=== PATIENT | female | born 1950 | race Caucasian/White ===

== ENCOUNTER 2023-12-06 12:38 | Outpatient (AMB) | payer MEDICARE, SELFPAY ==
--- NOTE | 2023-12-06 12:41 | MHC.OFFVIS ---
Vital Signs 12/06/23 12:51 Height 5 ft 6 in Weight 200 lb BMI 32.3 Intake Visit Reasons: [employer]-Right knee pain Intake Note: Armando is a 73 year old female who presents as a new patient who is reestablishing care with Dr. Greco with Right knee pain swelling. Patient reports her pain has been going on for about 4 years. The patient states that she did have right knee arthroscopic surgery approximately 4 years ago. She got temporary relief from that surgery. She has had cortisone injections in the past which gave her minimal relief. She has had a series of viscosupplementation injections given into her left knee. She reports minimal discomfort in her left knee. She would like to hold off on further surgery for as long as possible. She has done physical therapy exercises which aggravated her pain. She has also tried Tylenol and anti-inflammatory medicines which gave her minimal relief. 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 Physical Exam Vital Signs: BMI result Body Mass Index 32.3 Const Other: Well-nourished well-developed very friendly female awake alert and oriented x3 in no acute distress Extrem Other: Bilateral lower extremity examination shows good capillary refill, no skin lesions noted, normal sensation light touch Right knee examination shows a minimal effusion, mild crepitus with range of motion, pain with range of motion, no instability Results Reviewed Results Reviewed: X-rays of the patient's right knee show moderate joint space narrowing most significant in the medial compartment, no acute bony abnormalities Assessment & Plan Assessment & Plan (1) Arthritis of right knee: Code(s): M17.11 - Unilateral primary osteoarthritis, right knee Category: Medical Plan Ms. Roman presents with right knee pain due to degenerative joint disease. I had a lengthy discussion with the patient regarding the treatment options. She wishes to hold off on right total knee replacement surgery for as long as possible. I agree with this plan. She has not gotten long-term relief from cortisone injections. Thus, I will see whether not her insurance company will cover a series of 3 viscosupplementation injections for her right knee. She has gotten good relief of such a series of injections given into her left knee. I will see her back once the injections are available. Feel free to call me at any time should questions regarding her orthopedic management arise. I spent 22 minutes in reviewing the patient's records and imaging studies, seeing the patient and documenting in the medical record. Orders: Orders XR knee RT 3V Today M25.561 - Pain in right knee Coding Level of Care Code Est Pt Level 3 (65181) Diagnoses Arthritis of right knee M17.11
[2023-12-06 12:51] VITALS: BMI 32.3
== END 2023-12-06 13:21 | disposition home or self-care (01) ==
PROVIDERS: PCP Physician Assistant; Visit Provider Orthopaedic Surgery
DX: M17.11 Unilateral primary osteoarthritis, right knee (principal)
CPT/HCPCS: 99213

== ENCOUNTER 2023-12-06 13:09 | Outpatient (REF) | payer MEDICARE, BC, SELFPAY ==
--- NOTE | ~2023-12-06 | XR_ITS ---
EXAMINATION: XR KNEE, RIGHT CLINICAL INFORMATION: Pain in right knee. COMPARISON: None available. TECHNIQUE: Three views of the right knee. FINDINGS: Small joint effusion. Bones are diffusely demineralized. Moderate narrowing of the medial compartment with medial marginal osteophytes. Small posterior patellar osteophytes. Asymmetric narrowing of the lateral aspect of the patellofemoral compartment. XR/XR knee RT 3V IMPRESSION: Moderate degenerative changes.
== END 2023-12-06 13:10 | disposition home or self-care (01) ==
LOC: HO.HOSX 13:09
PROVIDERS: Visit Provider Orthopaedic Surgery
DX: M17.11 Unilateral primary osteoarthritis, right knee (principal)
CPT/HCPCS: 73562; 99212

== ENCOUNTER 2024-01-03 13:23 | Outpatient (AMB) | payer MEDICARE, OTHER, SELFPAY ==
[2024-01-03 13:28] VITALS: BMI 32.3
--- NOTE | 2024-01-03 13:28 | A.OFFVIS_ITS ---
Vital Signs 01/03/24 13:28 Height 5 ft 6 in Weight 200 lb BMI 32.3 Intake Visit Reasons: INJ #1 Right knee euflexxa gel injection Intake Note: Armando is a 73 year old female who presents with complaints of progressively worsening right knee pain. She describes her pain as sharp in nature. Her pain has gotten worse over the last few years in spite of continued non operative treatments. She has done physical therapy exercises which aggravated her pain. She has also tried Tylenol and anti-inflammatory medicines which gave her minimal relief. She has had cortisone injections which gave her no relief. She wishes to hold off on surgery for as long as possible. Allergies Sulfa (Sulfonamide Antibiotics) Allergy (Mild, Verified 01/03/24 13:29) Itching Medication List - Last Reconciled 01/04/24 by Javier Greco MD acetaminophen (Tylenol) 325 mg PO QID PRN ibuprofen 200 mg PO Q6H PRN PFSH Surgical History (Updated 12/06/23 @ 12:57 by Karlee Kirkpatrick CMA) Hx of cataract surgery Hx of left knee surgery Hx of right knee surgery Social History (Updated 12/06/23 @ 12:58 by Karlee Kirkpatrick CMA) Patient Tobacco Use Status: Never used Tobacco Current occupational status: retired Current occupation: Right ar[employer] dominant Physical Exam Vital Signs: BMI result Body Mass Index 32.3 Const Other: Well-nourished well-developed very friendly female awake alert and oriented x3 in no acute distress Extrem Other: Bilateral lower extremity examination shows good capillary refill, no skin lesions noted, normal sensation light touch Right knee examination shows a minimal effusion, palpable crepitus with range of motion, pain with range of motion, no instability Office Procedures Joint Injection/Drain Joint Injection/Drain Primary Site: right knee Prep: site was prepped using aseptic technique Injected: 20 mg of (Euflexxa viscosupplementation) and 1% plain lidocaine Procedure: The patient tolerated the procedure well Coding 57284 - Large joint Procedure code (CPT) selection complete Results Reviewed Results Reviewed: X-rays of the patient's right knee show joint space narrowing, subchondral sclerosis, no acute bony abnormalities Assessment & Plan Assessment & Plan (1) Arthritis of right knee: Code(s): M17.11 - Unilateral primary osteoarthritis, right knee Category: Medical Plan Ms. Roman presents with right knee pain due to degenerative joint disease. I had a lengthy discussion patient regarding the treatment options. She wishes to hold off on surgery for as long as possible. I agree with this plan. The risks and benefits of a series of Euflexxa viscosupplementation injections were disc ussed at length with the patient. The patient wishes to proceed. She tolerated the 1st injection well. Prior to the injection 3 cc of clear fluid were aspirated from the patient's right knee. She will follow up next week as scheduled. Feel free to call me at any time should questions regarding her orthopedic management arise. I spent 20 minutes in reviewing the patient's records and imaging studies, seeing the patient and documenting in the medical record. Orders: Orders AMB Joint Injection/Aspiration 01/03/24 M17.11 - Unilateral primary osteoarthritis, right knee Coding Level of Care Code Est Pt Level 3 (39584) Diagnoses Arthritis of right knee M17.11 CPT Codes Coding - 79107 Large joint: 89836 - Large joint ([id number])
== END 2024-01-03 13:44 | disposition home or self-care (01) ==
PROVIDERS: PCP Physician Assistant; Visit Provider Orthopaedic Surgery
DX: M17.11 Unilateral primary osteoarthritis, right knee (principal)
CPT/HCPCS: 20610; 99213

== ENCOUNTER → 2024-01-03 13:23 | Outpatient (BNVA) | payer MEDICARE, BC, SELFPAY | PROVIDERS: PCP Physician Assistant; Visit Provider Orthopaedic Surgery | DX: M17.11 Unilateral primary osteoarthritis, right knee (principal) | CPT/HCPCS: 20610; 99212; J7323 ==

== ENCOUNTER 2024-01-10 13:24 | Outpatient (AMB) | payer MEDICARE, OTHER, SELFPAY ==
--- NOTE | 2024-01-10 13:26 | MHC.OFFVIS ---
Vital Signs 01/10/24 13:28 Height 5 ft 6 in Weight 200 lb BMI 32.3 Intake Visit Reasons: INJ #2 Right knee euflexxa gel injection, Left shoulder pain Intake Note: Armando is a 73 year old female who presents with complaints of intermittent left shoulder pain as well as right knee pain. The patient states that she got mild relief from the 1st Euflexxa injection that she was given into her right knee at her last visit. She denies any fevers or chills. The patient states that she has been riding her bike which aggravates her left shoulder pain. She denies any weakness in her left shoulder. She has had an MRI of her left shoulder in the past. She has taken Tylenol and ibuprofen which gave her mild relief. She wishes to hold off on surgery for her shoulder or knee for as long as possible. today for her second Right knee Euflexxa gel injection #2. Patient reports she is doing well after first injection. Allergies Sulfa (Sulfonamide Antibiotics) Allergy (Mild, Verified 01/10/24 13:27) Itching Medication List - Last Reconciled 01/10/24 by Javier Greco MD acetaminophen (Tylenol) 325 mg PO QID PRN ibuprofen 200 mg PO Q6H PRN PFSH Surgical History Hx of cataract surgery Hx of left knee surgery Hx of right knee surgery Social History Patient Tobacco Use Status: Never used Tobacco Current occupational status: retired Current occupation: Right hand dominant Physical Exam Vital Signs: BMI result Body Mass Index 32.3 Const Other: Well-nourished well-developed very friendly female awake alert and oriented x3 in no acute distress Extrem Other: Bilateral upper extremity examination shows good capillary refill, no skin lesions noted, normal sensation light touch Left shoulder examination shows slightly decreased range of motion when compared to her right shoulder, 5/5 strength with supraspinatus testing, positive impingement signs, tenderness over her acromioclavicular joint, no instability Right knee examination shows a minimal effusion, palpable crepitus with range of motion, pain with range of motion, no instability Results Reviewed Results Reviewed: X-rays of the patient's right knee show joint space narrowing, subchondral sclerosis, no acute bony abnormalities MRI of the patient's left shoulder shows mild to moderate glenohumeral joint degenerative changes, a type 2 acromion, severe acromioclavicular joint narrowing, no rotator cuff tearing noted Assessment & Plan Assessment & Plan (1) Left shoulder pain: Code(s): M25.512 - Pain in left shoulder (2) Arthritis of right knee: Code(s): M17.11 - Unilateral primary osteoarthritis, right knee Category: Medical Plan Ms. Roman presents with left shoulder pain due to impingement syndrome, acromioclavicular joint arthritis and glenohumeral joint arthritis. I had a lengthy discussion with the patient regarding the treatment options. She wishes to hold off on surgery for as long as possible. I agree with this plan. Activity modifications were discussed at length with the patient. The patient does have right knee pain due to degenerative joint disease. The risks and benefits of a 2nd Euflexxa viscosupplementation injection were discussed at length with the patient. The patient wished to proceed. She tolerated the injection well. She will follow up with me next week as scheduled. Feel free to call me at any time should questions regarding her orthopedic management arise. I spent 20 minutes in reviewing the patient's records and imaging studies, seeing the patient and documenting in the medical record. Orders: Orders AMB Joint Injection/Aspiration Today M17.11 - Unilateral primary osteoarthritis, right knee Coding Level of Care Code Est Pt Level 3 (56769) Diagnoses Left shoulder pain M25.512 Arthritis of right knee M17.11
[2024-01-10 13:28] VITALS: BMI 32.3
== END 2024-01-10 13:49 | disposition home or self-care (01) ==
PROVIDERS: PCP Physician Assistant; Visit Provider Orthopaedic Surgery
DX: M25.512 Pain in left shoulder (principal); M17.11 Unilateral primary osteoarthritis, right knee
CPT/HCPCS: 20610; 99213

== ENCOUNTER → 2024-01-10 13:24 | Outpatient (BNVA) | payer MEDICARE, BC, SELFPAY | PROVIDERS: PCP Physician Assistant; Visit Provider Orthopaedic Surgery | DX: M17.11 Unilateral primary osteoarthritis, right knee (principal); M25.512 Pain in left shoulder | CPT/HCPCS: 20610; 99212; J7323 ==

== ENCOUNTER 2024-01-17 13:22 | Outpatient (AMB) | payer MEDICARE, OTHER, SELFPAY ==
--- NOTE | 2024-01-17 13:24 | MHC.OFFVIS ---
Intake Visit Reasons: INJ #3 Right knee euflexxa gel injection Intake Note: Armando is a 73 year old female who presents to the office today for her #3 right knee Euflexxa gel injection. She states that she has gotten mild relief from the injections given to her at her last 2 visits. She denies any locking or giving way. Allergies Sulfa (Sulfonamide Antibiotics) Allergy (Mild, Verified 01/17/24 13:25) Itching Medication List - Last Reconciled 01/17/24 by Javier Greco MD acetaminophen (Tylenol) 325 mg PO QID PRN ibuprofen 200 mg PO Q6H PRN PFSH Surgical History Hx of cataract surgery Hx of left knee surgery Hx of right knee surgery Social History Patient Tobacco Use Status: Never used Tobacco Current occupational status: retired Current occupation: Right hand dominant Physical Exam Extrem Other: Right knee examination shows a minimal effusion, palpable crepitus with range of motion, pain with range of motion, no instability Office Procedures Joint Injection/Drain Joint Injection/Drain Primary Site: right knee Prep: site was prepped using aseptic technique Injected: 20 mg of (Euflexxa viscosupplementation) and 1% plain lidocaine Coding - Large joint Procedure code (CPT) selection complete Results Reviewed Results Reviewed: X-rays of the patient's right knee show joint space narrowing, subchondral sclerosis, no acute bony abnormalities Assessment & Plan Assessment & Plan (1) Arthritis of right knee: Code(s): M17.11 - Unilateral primary osteoarthritis, right knee Category: Medical Plan Ms. Roman presents with right knee pain due to degenerative joint disease. The risks and benefits of a 3rd Euflexxa injection were discussed at length with the patient. The patient wished to proceed. She tolerated the injection well. She will continue with her home exercise program. She will contact me prior to her follow-up appointment in 3 months should any questions or concerns arise. Feel free to call me at any time should questions regarding her orthopedic management arise. Orders: Orders AMB Joint Injection/Aspiration Today M17.11 - Unilateral primary osteoarthritis, right knee Coding Level of Care Code Procedure Only Diagnoses Arthritis of right knee M17.11 CPT Codes Coding - Large joint: 58859 - Large joint ([id number])
== END 2024-01-17 13:39 | disposition home or self-care (01) ==
PROVIDERS: PCP Physician Assistant; Visit Provider Orthopaedic Surgery
DX: M17.11 Unilateral primary osteoarthritis, right knee (principal)
CPT/HCPCS: 20610

== ENCOUNTER → 2024-01-17 13:22 | Outpatient (BNVA) | payer MEDICARE, BC, SELFPAY | PROVIDERS: PCP Physician Assistant; Visit Provider Orthopaedic Surgery | DX: M17.11 Unilateral primary osteoarthritis, right knee (principal) | CPT/HCPCS: 20610; J7323 ==

== ENCOUNTER 2024-04-24 13:02 | Outpatient (AMB) | payer MEDICARE, OTHER, SELFPAY ==
[2024-04-24 13:04] VITALS: BMI 32.3
--- NOTE | 2024-04-24 13:04 | MHC.OFFVIS ---
Vital Signs 04/24/24 13:04 Height 5 ft 6 in Weight 200 lb BMI 32.3 Intake Visit Reasons: Left shoulder pain Intake Note: Armando is a 74 year old female who presents with complaints of intermittent pain in her left shoulder. She describes her pain as achy in nature. She denies any weakness. She continues with her home stretching program. Allergies Sulfa (Sulfonamide Antibiotics) Allergy (Mild, Verified 04/24/24 13:08) Itching Medication List - Last Reconciled 04/24/24 by Javier Greco MD acetaminophen (Tylenol) 325 mg PO QID PRN ibuprofen 200 mg PO Q6H PRN PFSH Surgical History Hx of cataract surgery Hx of left knee surgery Hx of right knee surgery Social History Patient Tobacco Use Status: Never used Tobacco Current occupational status: retired Current occupation: Right hand dominant Physical Exam Vital Signs: BMI result Body Mass Index 32.3 Const Other: Well-nourished well-developed very friendly female awake alert and oriented x3 in no acute distress Extrem Other: Bilateral upper extremity examination shows good capillary refill, no skin lesions noted, normal sensation light touch Left shoulder examination shows decreased range of motion when compared to her right shoulder, 4+ out of 5 strength with supraspinatus testing, positive impingement signs, mild crepitus with range of motion, no instability Assessment & Plan Assessment & Plan (1) Left shoulder pain: Code(s): M25.512 - Pain in left shoulder Plan Ms. Roman presents with intermittent left shoulder pain due to impingement syndrome and glenohumeral joint arthritis as well as adhesive capsulitis. I had a lengthy discussion with the patient regarding the treatment options. At this point the patient's symptoms are tolerable to her. She will continue with her home stretching program to prevent stiffness. She will follow up with me on an as-needed basis should her symptoms worsen in any way. Feel free to call me at any time should questions regarding her orthopedic management arise. I spent 21 minutes in reviewing the patient's records and imaging studies, seeing the patient and documenting in the medical record. Coding Level of Care Code Est Pt Level 3 (79750) Complex EM visit Add On G2211 Diagnoses Left shoulder pain M25.512
== END 2024-04-24 13:38 | disposition home or self-care (01) ==
PROVIDERS: PCP Physician Assistant; Visit Provider Orthopaedic Surgery
DX: M75.42 Impingement syndrome of left shoulder (principal); M75.02 Adhesive capsulitis of left shoulder; M19.012 Primary osteoarthritis, left shoulder
CPT/HCPCS: 99213

== ENCOUNTER → 2024-04-24 13:02 | Outpatient (BNVA) | payer MEDICARE, BC, OTHER, SELFPAY | PROVIDERS: PCP Physician Assistant; Visit Provider Orthopaedic Surgery | DX: M25.512 Pain in left shoulder (principal) | CPT/HCPCS: 99212 ==

== ENCOUNTER 2025-07-16 08:30 | Outpatient (AMB) | payer MEDICARE, OTHER, BC, SELFPAY ==
--- OUTSIDE RECORDS SUMMARY | 2024-10-12 07:30 | XMS_ITS ---
Author Organization [facility] Address [address] [place] [address] Care Team Providers Care Preparole Counseling Aide Name Role Phone PCP, Not Found in eCW Primary Care Provider Sherrill Ceron Unavailable [phone] ALLERGIES Allergen (clinical drug ingredient) Drug/Non Drug Allergy documented on EMR Reaction Allergy Type Onset Date Status Substance with sulfonamide structure and antibacterial mechanism of action (substance) Sulfa Antibiotics Unknown Drug Allergy Active RESULTS Component Value Reference Range Notes COVID-19 Rapid Antigen Reviewed date:10/12/2024 06:38:41 PM Interpretation:negative Performing Lab: Notes/Report: negative COVID19 negative Throat Culture - [facility] Reviewed date:10/14/2024 10:37:36 AM Interpretation:Negative Performing Lab:[facility], [address] [place] [address], Director - [facility] Caser: Saeed Kim MD Notes/Report: Throat Strep A SEE NOTE: : 1950 SEX: Female Microbiology Test Name: Throat Culture [P1] Source: Throat Body Site: Collected Date/Time: 10/12/2024 13:44 EDT Received Date/Time: 10/13/2024 03:33 EDT Start Date/Time: 10/13/2024 03:34 EDT Free Text Source: FINAL REPORT Final Report [] Reported Date/Time: 10/14/2024 08:35 EDT No Streptococcus pyogenes (Group A) isolated Performing Locations P1: This test was performed at: [facility], [address] [place], [address], [facility] A = Abnormal, H = High, HH = Critical High, L = Low, LL = Critical Low Rapid Strep Reviewed date:10/12/2024 07:04:50 PM Interpretation:Negative Performing Lab: Notes/Report: Negative STREP negative NEG - POS Covid-19 PCR - [facility] (Not ye t reviewed by provider) Interpretation: Performing Lab:[facility], [address] [place] [address], Director - [facility] Caser: Saeed Kim MD Notes/Report: Test not performed COVID-19 RT-PCR CANCEL Cancellation Reason: Lab Operations Cancel A = Abnormal, H = High, HH = Critical High, L = Low, LL = Critical Low REASON FOR VISIT ILLNESS MEDICATIONS Medication SIG (Take, Route, Frequency, Duration) Notes Start Date End Date Status Penicillin V Potassium 500 MG 1 tablet Orally Twice a day for 10 days 10/12/2024 10/22/2024 Active SOCIAL HISTORY Tobacco Use: Social History Observation Description Date Details (start date - stop date) Former Smoker NA - NA Sex Assigned At : Social History Observation Description Sex Assigned At Unknown Tobacco Use/Smoking Question Answer Notes You are a former smoker VITAL SIGNS Temperature 98.1 degrees Fahrenheit 10/13/19 25 Heart Rate 87 /min 10/12/2024 Blood pressure systolic 134 mm Hg 10/13/19 25 Blood pressure diastolic 84 mm Hg 025 Respiratory Rate 17 /min 10/12/2024 Oximetry 96 % 10/12/2024 Height 5'6 in 10/12/2024 Weight 190 lbs 10/12/2024 BMI 30.66 kg/m2 10/12/2024 Encounters Encounter Location Date Provider Diagnosis [facility] [address] [place] [address] 10/12/2024 Sherrill Machado Encounter for laboratory testing for COVID-19 virus Z20.822 ; Strep pharyngitis J02.0 and Sore throat J02.9 ASSESSMENTS Encounter Date Diagnosis Assessment Notes Treatment Notes Treatment Clinical Notes Section Notes 10/12/2024 Encounter for laboratory testing for COVID-19 virus (ICD-10 - Z20.822) Isolation starts on the first day of symptom onset or on date of positive test if you are asymptomatic. Isolation only ends if symptoms are improved, and you have had NO fever. A known COVID exposure is being within 6 feet of someone known to have COVID for at least 15 minutes. People with COVID may be contagious 48 hours before they get sick. Positive Results: The virus was found in the nasal passage, and you are infected with COVID. You should: 1. Stay home except to get medical care. 2. Isolate yourself from other people until your symptoms improve and you are fever free for 24 hours without the need for fever reducing medications. Children under 2 years old may need to be isolated longer, so please discuss this with your provider. 3. When resuming normal activities, you should take precautions such as mask wearing and social distancing as you may still be able to spread the virus. If you develop a fever or start to feel worse, you should stay home and away from others again. 4. Monitor your symptoms and if you have any of these emergency warning signs for COVID get medical attention immediately: Trouble breathing Persistent pain or pressure in the chest New confusion or inability to arouse Bluish lips or face 5. The most effective treatment for COVID is still an Oral AntiViral (OAV) medication called Paxlovid. Anyone over the age of 12 with any of these common risk factors (heart disease, lung disease, chronic kidney disease, obesity, diabetes, immunocompromis ed, cancer, , age > 50) is eligible for treatment within the first 5 days of illness. If you have any questions or would like to see if you qualify for treatment, you can discuss this with us today or your PCP. Negative Results: The virus was not found in your nose. A negative result means you probably were not infected at the time your sample was collected. However, that does not mean you will not get sick. It is possible that you were very early in your infection when your sample was collected and that you could test positive later. If a COVID PCR test was performed, you will be contacted within 24-48h if your test is positive. If negative, you will receive an email to access your results on the patient portal. To access your patient portal, you may visit [email or web address]. If a COVID PCR test was not performed, it is recommended for you to perform a home test in 48 hours. Please continue to wear a mask, hand wash, and continue social distancing. Please contact your provider if you have new or worsening symptoms. Even with a NEGATIVE COVID test, if you were exposed it is recommended to mask for 10 days around others and get tested if symptoms develop. Add U07.1 and remove Z20.822 if Covid Positive 10/12/2024 Strep pharyngitis (ICD-10 - J02.0) Add U07.1 and remove Z20.822 if Covid Positive 10/12/2024 Sore throat (ICD-10 - J02.9) Add U07.1 and remove Z20.822 if Covid Positive 10/12/2024 Other You may take an lorr-hvq-eplxcz r pain reliever/fever event promotions coordinator for any fever/pain. You can also take an mmpv-bbg-nemlne r cough suppressant as needed for cough if one has not been prescribed. Your provider can recommend specific medications based on your medical history if needed. Return to the clinic or schedule a virtual visit if you require additional medical attention. Add U07.1 and remove Z20.822 if Covid Positive PLAN OF TREATMENT Medication Medication Name Sig Start Date Stop Date Notes Penicillin V Potassium 500 MG 1 tablet O rally Twice a day for 10 days 10/12/2024 10/22/2024 Treatment Notes Assessment Notes Encounter for laboratory sylvester ting for COVID-19 virus Isolation starts on the first day of symptom onset or on date of positive test if you are asymptomatic. Isolation only ends if symptoms are improved, and you have had NO fever. A known COVID exposure is being within 6 feet of someone known to have COVID for at least 15 minutes. People with COVID may be contagious 48 hours before they get sick. Positive Results: The virus was found in the nasal passage, and you are infected with COVID. You should: 1. Stay home except to get medical care. 2. Isolate yourself from other people until your symptoms improve and you are fever free for 24 hours without the need for fever reducing medications. Children under 2 years old may need to be isolated longer, so please discuss this with your provider. 3. When resuming normal activities, you should take precautions such as mask wearing and social distancing as you may still be able to spread the virus. If you develop a fever or start to feel worse, you should stay home and away from others again. 4. Monitor your symptoms and if you have any of these emergency warning signs for COVID get medical attention immediately: Trouble breathing Persistent pain or pressure in the chest New confusion or inability to arouse Bluish lips or face 5. The most effective treatment for COVID is still an Oral AntiViral (OAV) medication called Paxlovid. Anyone over the age of 12 with any of these common risk factors (heart disease, lung disease, chronic kidney disease, obesity, diabetes, immunocompromised, cancer, , age > 50) is eligible for treatment within the first 5 days of illness. If you have any questions or would like to see if you qualify for treatment, you can discuss this with us today or your PCP. Negative Results: The virus was not found in your nose. A negative result means you probably were not infected at the time your sample was collected. However, that does not mean you will not get sick. It is possible that you were very early in your infection when your sample was collected and that you could test positive later. If a COVID PCR test was performed, you will be contacted within 24-48h if your test is positive. If negative, you will receive an email to access your results on the patient portal. To access your patient portal, you may visit [email or web address]. If a COVID PCR test was not performed, it is recommended for you to perform a home test in 48 hours. Please continue to wear a mask, hand wash, and continue social distancing. Please contact your provider if you have new or worsening symptoms. Even with a NEGATIVE COVID test, if you were exposed it is recommended to mask for 10 days around others and get tested if symptoms develop. Other You may take an over -the-counter pain reliever/fever event promotions coordinator for any fever/pain. You can also take an aldg-qnx-nrebmyh cough suppressant as needed for cough if one has not been prescribed. Your provider can recommend specific medications based on your medical history if needed. Return to the clinic or schedule a virtual visit if you require additional medical attention. Procedure Notes * Category Sub-Category Detail Notes GH - COVID POSITIVE Treatment Options Answer questions for ALL patients being tested for COVID. Has Patient tested POSITIVE for COVID at this time?: N/A (Patient was NOT tested or did NOT test positive at time of visit/does not meet treatment guidelines) Progress Notes * Examination Category Sub-Category Detail Notes Category Not es General PE GENERAL: no acute distres s, well nourished, well developed HEAD: normocephalic, atrau matic EYES: no conjunctival inje ction MOUTH/THROAT , moderate pharyngea l erythema, b/l tonsillar swelling with exudates, no kissing tonsills, uvula midline, no drooling, no COUNTY ENGINEER, moist mucous membranes HEART: regular rate and rhy thm LUNGS: , Normal: clear to a uscultation, No respiratory distress, no accessory muscle use, No rales, No rhonchi, No wheezing PSYCHIATRIC: affect full , Intera ctive, conversant, A&O x3 SKIN warm, dry, no rash o n exposed skin EARS/NOSE: tympanic membranes c lear bilaterally, No redness, normal landmarks and light reflexes, canal clear without cerumen impaction LYMPHATIC no cervical lymphade nopathy History and Physical Notes * HPI (History of Present Illness) Category Sub-Category Detail Notes Category Not es URI nasal congestion admits cough admits fever none vomiting none diarrhea none ear pain none sore throat mild Duration 4 days myalgias denies chills denies Modifying Factors patient has tried OT C medications with mild relief Independent historian used No Coronavirus Screening Exposure Screening Known positive CO VID Exposure: Did you have a positive home COVID test? : No Have you been vaccinated against COVID-1 9?: Do you have any high-risk medical condit ions?:
--- OUTSIDE RECORDS SUMMARY | 2024-10-14 05:36 | XMS_ITS ---
Author Organization [facility] Address [address] [place] [address] Care Team Providers Care Broadcast Systems Engineer Name Role Phone PCP, Not Found in eCW Primary Care Provider Unav ailable Pepe Gilman Unavailable [phone] REASON FOR VISIT CC/RESULTS(Rep) Encounters Encounter Location Date Provider Diagnosis [facility] [address] [place] [address] 10/14/2024 Pepe Gilman PLAN OF TREATMENT No Information
--- OUTSIDE RECORDS SUMMARY | 2024-10-15 05:00 | XMS_ITS ---
Author Organization [facility] Address [address] [place] [address] Care Team Providers Care Paint Supervisor Name Role Phone PCP, Not Found in eCW Primary Care Provider Unav James Deng Unavailable [phone] ALLERGIES Allergen (clinical drug ingredient) Drug/Non Drug Allergy documented on EMR Reaction Allergy Type Onset Date Status Substance with sulfonamide structure and antibacterial mechanism of action (substance) Sulfa Antibiotics Unknown Drug Allergy Active REASON FOR VISIT cough MEDICATIONS Medication SIG (Take, Route, Fr equency, Duration) Notes Start Date End Date Status Vigamox 0.5 % 1 drop into affected eye Ophthalmic Three times a day for 5 days 10/15/2024 10/20/2024 Active Benzonatate 200 MG 1 capsule as needed Orally bid for 7 days 10/15/2024 10/22/2024 Active PROBLEMS Problem Type ICD Code Onset Dates Problem Status W/U Status Risk SNOMED Code Notes Problem Upper respiratory tract infection, unspecified type (J06.9) Active confirmed 31589613 VITAL SIGNS Temperature 98.4 degrees Fahrenheit 10/16/19 25 Heart Rate 89 /min 10/15/2024 Blood pressure systolic 132 mm Hg 10/16/19 25 Blood pressure diastolic 84 mm Hg 025 Respiratory Rate 16 /min 10/15/2024 Oximetry 96 % 10/15/2024 Height 5ft 6in in 10/15/2024 Weight 190 lbs 10/15/2024 BMI 30.66 kg/m2 10/15/2024 Encounters Encounter Location Date Provider Diagnosis [facility] [address] [place] [address] 10/15/2024 James Avila Acute bacterial conjunctivitis of both eyes H10.33 and Upper respiratory tract infection, unspecified type J06.9 ASSESSMENTS Encounter Date Diagnosis Assessment Notes Treatment Notes Treatment Clinical Notes Section Notes 10/15/2024 Acute bacterial conjunctivitis of both eyes (ICD-10 - H10.33) 10/15/2024 Upper respiratory tract infection, unspecified type (ICD-10 - J06.9) PLAN OF TREATMENT Medication Medication Name Sig Start Date Stop Date Notes Vigamox 0.5 % 1 drop into affected eye Ophthalmic Three times a day for 5 days 10/15/2024 10/20/2024 Benzonatate 200 MG 1 capsule as needed Orally bid for 7 days 10/15/2024 10/22/2024 Progress Notes * Examination Category Sub-Category Detail Notes Category Not es General Examination GENERAL APPEARANCE: alert, w ell hydrated, in no distress, not sob, occ. 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 she denies sob or cp.
--- NOTE | 2025-07-16 08:31 | A.OFFVIS_ITS ---
Intake Visit Reasons: Inj-right knee Durolane injection Intake Note: Armando is a 75 year old female who presents with complaints of right knee pain. She describes her pain as sharp in nature. She has failed the last 3 months of conservative treatment. She wishes to hold off on surgery for as long as possible. Allergies Sulfa (Sulfonamide Antibiotics) Allergy (Mild, Verified 04/24/24 13:08) Itching Medication List - Last Reconciled 07/16/25 by Javier Greco MD acetaminophen (Tylenol) 325 mg PO QID PRN ibuprofen 200 mg PO Q6H PRN HPI HPI Inj-right knee Durolane injection: Details: Armando is a 75 year old female who presents today for a Right Knee Durolane Injection. [facility] Surgical History Hx of cataract surgery Hx of left knee surgery Hx of right knee surgery Social History (Reviewed 01/10/24 @ 13:28 by Angela Sharp [facility] Patient Tobacco Use Status: Never used Tobacco Current occupational status: retired Current occupation: Right hand dominant Physical Exam Extrem Other: Right knee examination shows a minimal effusion, palpable crepitus with range of motion, pain with range of motion, no instability Office Procedures AMB Joint Injection/Aspiration Joint Injection/Aspiration Primary Site: Right Knee Prep: site was prepped using aseptic technique Injected: 60 mg of, Durolane, with 3 mL of and 1% plain Lidocaine Procedure: The patient tolerated the procedure well Coding 79836 - Large joint Procedure code (CPT) selection complete Results Reviewed Results Reviewed: X-rays of the patient's right knee taken previously show joint space narrowing, subchondral sclerosis, no acute bony abnormalities Assessment & Plan Assessment & Plan (1) Arthritis of right knee: Code(s): M17.11 - Unilateral primary osteoarthritis, right knee Category: Medical Plan Ms. Roman presents with right knee pain due to osteoarthritis. The risks and benefits of a right knee Durolane viscosupplementation injection were discussed at length with the patient. The patient wished to proceed. She tolerated the injection well. She will continue with her home exercise program. She will contact me prior to her follow-up appointment in 3 months should any questions or concerns arise. Feel free to call me at any time should questions regarding her orthopedic management arise. I spent 22 minutes in reviewing the patient's records and imaging studies, seeing the patient and documenting in the medical record. Orders: Orders AMB Joint Injection/Aspiration Today M17.11 - Unilateral primary osteoarthritis, right knee Coding Level of Care Code Est Pt Level 3 (49014) Add On Problem Visit Only Diagnoses Arthritis of right knee M17.11 CPT Codes Coding - 33292 Large joint: 29128 - Large joint ([id number])
--- OUTSIDE RECORDS SUMMARY | 2025-07-16 08:43 | XMS_ITS | Patient Health Record ---
Author Organization [facility] Address [address] [place] [address] Support Name Relationship Address Phone Armando Roman Guarantor Unknown [phone] Reason For Referral No Information Problems Problem Type SNOMED Code ICD Code Onset Dates Problem Status W/U Status Risk Notes Problem Hyperlipidemia (57633299) Other and unspecified hyperlipidemia (272.4) 08/22/19 17 0 confirmed 471178_ Migrate d Problem Overweight (472838291) Overweight (278.02) 08/03/19 17 0 confirmed 471178_ Migrate d Plan Of Treatment No Information
--- OUTSIDE RECORDS SUMMARY | 2025-07-16 08:43 | XMS_ITS | Clinical Summary ---
Author Organization [facility] Prior to 12/28/[address] [place] [address] Care Team Providers Care Qa Tech Name Role Phone Unavailable Primary Care Provider Unavailabl e Allergies Active Allergy Reactions Criticality Noted Date Comments Sulfa Antibiotics 03/20/2020 Medications Medication Sig Dispensed Refills Start Date End Date Status ibuprofen (ADVIL,MOTRIN) 200 MG tablet Take 200 mg by mouth every 6 (six) hours as needed for pain. 0 Active predniSONE (DELTASONE) tablet 20 mg Take 3 tabs for 3 days then take 2 tabs for 3 days then take 1 tab for 3 days 18 tablet 0 08/31/2021 Active Active Problems Problem Noted Date Diagnosed Date Follow-up exam after treatment 04/19/2022 Traumatic tear of medial men iscus of knee, right, initial encounter 03/20/2020 Injury of right knee 03/20/2020 Family History Medical History Relation Name Comments Cancer Mother Diabetes Mother Relation Name Status Comments Mother Social History Tobacco Use Types Packs/Day Years Used Date Smoking Tobacco: Never Assessed Sex and Gender Information Value Date Recorded Sex Assigned at Not on file Gender Identity Not on file Sexual Orientation Not on file Job Start Date Occupation Industry Not on file Not on file Not on file Last Filed Vital Signs Vital Sign Reading Time Taken Comments Blood Pressure - - Pulse - - Temperature - - Respiratory Rate - - Oxygen Saturation - - Inhaled Oxygen Concentration - - Weight 88.5 kg (195 lb) 04/01/2022 9:14 AM EDT Height 167.6 cm (5' 6 ) 04/01/2022 9:14 AM EDT Body Mass Index 31.47 04/01/2022 9:14 AM EDT Plan of Treatment Health Maintenance Due Date Last Done Comments Hepatitis C Screening 1950 COVID-19 Vaccine (#1) 1950 Depression Screening 1961 BMI Counseling 1967 Preventative Health Evaluation 1967 DTap / Tdap / Td (1 - Tdap) 1968 Shingrix-Zoster Vaccine (1 of 2) 1999 Fall Risk Assessment 2014 Osteoporosis Screening (DEXA Scan) 2014 Pneumococcal Vaccine (1 of 1 - PCV) 2014 RSV Adult > 60+ Yrs or Pregn ant (1 - 1-dose 75+ series) 2024 Influenza Vaccine (#1) 2025 Hepatitis B Vaccines Aged Out No long er eligible based on patient's age to complete this topic RSV Ped < 20 months Aged Out No longe r eligible based on patient's age to complete this topic
--- OUTSIDE RECORDS SUMMARY | 2025-07-16 08:43 | XMS_ITS | Data Portability ---
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 She opted for cortisone injection. This was carried out. She tolerated this well aftercare instructions were discussed in detail. I will see her back in approximately 8 weeks for repeat clinical exam should her symptoms not improve or worsen she should contact my office. She agrees with above-noted plan. Indirect care and treatment in conjunction with Dr. Rosenthal Additional treatment plan discussed with the patient in detail included the following; - Provider focused nonsteroidal anti-inflammatory regimen (discussed were the pros, cons, benefits and risks as well as any black box warnings) in patients over 60 years old they should be very cautious in taking these medications due to potential decreased kidney function and or elevated blood pressure. - Analgesic pain medication for pain suppression (discussed were the pros, cons, benefits and risks as well as any black box warnings) - The use of topical pain relieving medication were discussed - The use of ice to decrease inflammation and pain - The use of assistive ambulatory devices for ambulation and fall prevention - Formal specific guided physical therapy program I reviewed my findings at length with the patient today. We discussed the nature and etiology of this problem along with current treatment options. We discussed the expected course and outcomes and what to expect. We also discussed risks and benefits. All of their questions were answered today, and there was exhibited understanding and comprehension of all that was discussed. Time Spent: 10 minutes were spent reviewing previous imaging and charting. 10 minutes were spent obtaining patient history. 5 minutes were spent on physical exam. 5minutes were spent explaining diagnosis and assessment. Today's documentation was made using voice recognition software. This note may contain grammatical errors secondary to the software. Not available 03/14/2023 13:02:01 06/01/2023 06/01/2023 Very pleasant 73-year-old female with mild to moderate osteoarthritis of the right knee with joint effusion. She opted for an aspiration at today's visit followed by cortisone injection. She granted verbal consent. The procedures were then carried out for which she tolerated well. Aftercare instructions were discussed in detail. I would like to see her back in 3 months time for repeat clinical exam. Should her symptoms not improve or worsen she should contact my office immediately. She agrees with this plan Patient was seen and evaluated by Edwardo العلي PA-C in indirect conjuction with Documenting Provider: Abdiel Rosenthal MD . He/She agrees with history, physical examination, tests/diagnostic imaging, and treatment plan. Additional treatment plan discussed with the patient (only initiated if in boldface font) otherwise not applicable. Treatment may include the following; - Provider focused nonsteroidal anti-inflammatory regimen (discussed were the pros, cons, benefits and risks as well as any black box warnings) in patients over 60 years old they should be very cautious in taking these medications due to potential decreased kidney function and or elevated blood pressure. - Analgesic pain medication for pain suppression (discussed were the pros, cons, benefits and risks as well as any black box warnings) - The use of topical pain relieving medication were discussed - The use of ice to decrease inflammation and pain - The use of assistive ambulatory devices for ambulation and fall prevention - Formal specific guided physical therapy program I reviewed my findings at length with the patient today. We discussed the nature and etiology of this problem along with current treatment options. We discussed the expected course and outcomes and what to expect. We also discussed risks and benefits. All of their questions were answered today, and there was exhibited understanding and comprehension of all that was discussed. Time Spent: 10 minutes were spent reviewing previous imaging and charting. 10 minutes were spent obtaining patient history. 5 minutes were spent on physical exam. 5minutes were spent explaining diagnosis and assessment. Today's documentation was made using voice recognition software. This note may contain grammatical errors secondary to the software. Not available 06/02/2023 08:08:57 06/20/2023 06/20/2023 73-year-old female with left shoulder impingement syndrome despite conservative management has failed. I will send her for an MRI for further work-up depending upon the findings I may refer her to a shoulder surgeon if indicated. In the meantime she can continue with her current stretching regimen. She agrees with this plan. Patient was seen and evaluated by Edwardo العلي PA-C in indirect conjuction with Documenting Provider: Jose Montaño MD . He/She agrees with history, physical examination, tests/diagnostic imaging, and treatment plan. Additional treatment plan discussed with the patient (only initiated if in boldface font) otherwise not applicable. Treatment may include the following; - Provider focused nonsteroidal anti-inflammatory regimen (discussed were the pros, cons, benefits and risks as well as any black box warnings) in patients over 60 years old they should be very cautious in taking these medications due to potential decreased kidney function and or elevated blood pressure. - Analgesic pain medication for pain suppression (discussed were the pros, cons, benefits and risks as well as any black box warnings) - The use of topical pain relieving medication were discussed - The use of ice to decrease inflammation and pain - The use of assistive ambulatory devices for ambulation and fall prevention - Formal specific guided physical therapy program I reviewed my findings at length with the patient today. We discussed the nature and etiology of this problem along with current treatment options. We discussed the expected course and outcomes and what to expect. We also discussed risks and benefits. All of their questions were answered today, and there was exhibited understanding and comprehension of all that was discussed. Time Spent: 10 minutes were spent reviewing previous imaging and charting. 10 minutes were spent obtaining patient history. 5 minutes were spent on physical exam. 5minutes were spent explaining diagnosis and assessment. Today's documentation was made using voice recognition software. This note may contain grammatical errors secondary to the software. Not available 06/20/2023 12:59:23 07/11/2023 07/11/2023 Pleasant 73-year-old female with chronic left shoulder pain with partial rotator cuff tear of the supraspinatus tendon with glenohumeral arthritis, AC joint arthritis and impingement syndrome. Patient is taking care of her who recently had surgery. She states she is not interested in surgery at this point. She has gone through formal physical therapy and had cortisone injection in the past which did give her good relief. She is amenable to a cortisone injection at today's visit. We did discuss going up on the dose to 60 mg pros cons risk benefits discussed with patient for which she was amenable to. After verbal consent was obtained. The procedure was carried on the left shoulder. She tolerated the procedure well. Aftercare instructions were discussed in detail. Follow-up visit 3 months time for repeat clinical exam. Should her symptoms not improve or worsen she should contact my office immediately. Should she reconsider having surgery I will set her up to see Dr. Montaño in our [place] office. She agrees with this plan. She should continue with her home exercise program and rotator cuff protective measures. Patient was seen and evaluated by Edwardo العلي PA-C in indirect conjuction with Documenting Provider: Jose Montaño MD . He/She agrees with history, physical examination, tests/diagnostic imaging, and treatment plan. Additional treatment plan discussed with the patient (only initiated if in boldface font) otherwise not applicable. Treatment may include the following; - Provider focused nonsteroidal anti-inflammatory regimen (discussed were the pros, cons, benefits and risks as well as any black box warnings) in patients over 60 years old they should be very cautious in taking these medications due to potential decreased kidney function and or elevated blood pressure. - Analgesic pain medication for pain suppression (discussed were the pros, cons, benefits and risks as well as any black box warnings) - The use of topical pain relieving medication were discussed - The use of ice to decrease inflammation and pain - The use of assistive ambulatory devices for ambulation and fall prevention - Formal specific guided physical therapy program I reviewed my findings at length with the patient today. We discussed the nature and etiology of this problem along with current treatment options. We discussed the expected course and outcomes and what to expect. We also discussed risks and benefits. All of their questions were answered today, and there was exhibited understanding and comprehension of all that was discussed. Time Spent: 10 minutes were spent reviewing previous imaging and charting. 10 minutes were spent obtaining patient history. 5 minutes were spent on physical exam. 5minutes were spent explaining diagnosis and assessment. Today's documentation was made using voice recognition software. This note may contain grammatical errors secondary to the software. Not available 07/11/2023 14:10:39 10/11/2023 10/11/2023 Pleasant 73-year-old female with chronic left shoulder pain with partial rotator cuff tear of the supraspinatus tendon with glenohumeral arthritis, AC joint arthritis and impingement syndrome. She is amenable to a cortisone injection at today's visit. We did discuss going up on the dose to 60 mg pros cons risk benefits discussed with patient for which she was amenable to. After verbal consent was obtained. The procedure was carried on the left shoulder. She tolerated the procedure well. Aftercare instructions were discussed in detail. Follow-up visit will be with Dr. Montaño or his PA Should she reconsider having surgery I will set her up to see Dr. Montaño in our [place] office. She agrees with this plan. She should continue with her home exercise program and rotator cuff protective measures. Patient was seen and evaluated by Edwardo العلي PA-C in indirect conjuction with Documenting Provider: Jose Montaño MD . He/She agrees with history, physical examination, tests/diagnostic imaging, and treatment plan. Additional treatment plan discussed with the patient (only initiated if in boldface font) otherwise not applicable. Treatment may include the following; - Provider focused nonsteroidal anti-inflammatory regimen (discussed were the pros, cons, benefits and risks as well as any black box warnings) in patients over 60 years old they should be very cautious in taking these medications due to potential decreased kidney function and or elevated blood pressure. - Analgesic pain medication for pain suppression (discussed were the pros, cons, benefits and risks as well as any black box warnings) - The use of topical pain relieving medication were discussed - The use of ice to decrease inflammation and pain - The use of assistive ambulatory devices for ambulation and fall prevention - Formal specific guided physical therapy program I reviewed my findings at length with the patient today. We discussed the nature and etiology of this problem along with current treatment options. We discussed the expected course and outcomes and what to expect. We also discussed risks and benefits. All of their questions were answered today, and there was exhibited understanding and comprehension of all that was discussed. Time Spent: 10 minutes were spent reviewing previous imaging and charting. 10 minutes were spent obtaining patient history. 5 minutes were spent on physical exam. 5minutes were spent explaining diagnosis and assessment. Today's documentation was made using voice recognition software. This note may contain grammatical errors secondary to the software. Not available 10/11/2023 09:52:03 Plan of Treatment Reminders Order Date Submit Date Provider Last Modified By Organization Details Last Modified Time Details Appointments None recorded. Lab None recorded. Referral physical therapist referral - Left Adhesive capsulitis, impingement with GH arthritis. Eduardo. Inj 03/14/23 Eval and treat 2022 023 [email or web address] 2 Not available 3 08:58:07 Procedures None recorded. Surgeries None recorded. Imaging MRI, shoulder, w/o contrast - Chronic Left shoulder pain w/o change with cortisone Inj, PT failure, R/O RTC 2022 023 [facility], [address] [facility] [place], [address], 3 11:29:17 XR, knee, 4 or more view 2022 023 [email or web address] 2 [facility], [address], [place], [address], 3 15:27:50 XR, shoulder, 2 or more view 2022 023 [facility], [address], [place], [address], 3 11:21:16 Medication Orders Kenalog 40 mg/mL suspension for injection 2023 024 [facility], [address] [place], [address], 4 09:52:35 lidocaine (PF) 100 mg/5 mL (2 %) injection syringe 2023 024 [email or web address] [facility], [address] [place] [address], [id number], 4 10:13:40 bupivacaine HCl 0.5 % (5 mg/mL) injection solution 2023 024 [email or web address] [facility], [address] [place] [address], [id number], 4 10:13:40 Kenalog 40 mg/mL suspension for injection 2022 023 [email or web address], [address] [place] [address], [id number], 4 09:26:38 lidocaine (PF) 10 mg/mL (1 %) injection solution [address]/[facility]2024, [address] [place] [address], [id number], 4 09:26:40 bupivacaine HCl 0.5 % (5 mg/mL) injection solution 2022 023 [facility], [address] [place] [address], [id number], 4 09:26:36 Kenalog 40 mg/mL suspension for injection [address]/[facility]24, [address] [place] [address], [id number], 4 09:26:38 lidocaine (PF) 10 mg/mL (1 %) injection solution [address]/[facility]24, [address] [place] [address], [address], 4 09:26:40 Kenalog 40 mg/mL suspension for injection [address]/[facility]24, [address] [place] [address], [id number], 4 09:26:38 lidocaine (PF) 10 mg/mL (1 %) injection solution 2022 023 Not available 4 09:26:40 bupivacaine (PF) 0.5 % (5 mg/mL) injection solution 2022 023 [facility], [address] [place], [address], 3 11:17:10 Patient TargetsNo targets recorded. Patient Instructions Encounter Date Encounter Id Patient Instructions Last Modified By Organization Details Last Modified Time 03/14/2023 [id number] You have been provided with a cortisone injection in order to reduce the pain and inflammation that you are experiencing. The injection consists of two medications. Cortisone (an anti-inflammatory that will take 48-72 hours to take effect) and Lidocaine (a numbing agent that will last 2-3 hours). Please note that not everyone will have a lasting response following the injection. PATIENT INSTRUCTIONS Once the Lidocaine wears off, you may have an increase in your pain. I recommend icing the affected area for 20 minutes 3-4 times per day. It is recommended that you refrain from any high level activities using the joint or limb that was injected for approximately 24-48 hours. Normal day-to-day activities are generally not a problem. POSSIBLE SIDE EFFECTS Individuals with dark complexions may experience some skin discoloration locally at the site of the injection. There is the possibility of an increase in discomfort within 48 hours following the injection. This is called a jose michele . To help minimize the chances of this, please see the post-injection instructions above. There is a less than 1% chance of an infection. If you notice any signs of infection (redness, warmth, drainage, fever greater than 100 degrees) please call our office or contact us through the portal [facility]. Not available 03/14/2023 13:02:21 06/01/2023 [id number] You have been provided with a cortisone injection in order to reduce the pain and inflammation that you are experiencing. The injection consists of two medications. Cortisone (an anti-inflammatory that will take 48-72 hours to take effect) and Lidocaine (a numbing agent that will last 2-3 hours). Please note that not everyone will have a lasting response following the injection. PATIENT INSTRUCTIONS Once the Lidocaine wears off, you may have an increase in your pain. I recommend icing the affected area for 20 minutes 3-4 times per day. It is recommended that you refrain from any high level activities using the joint or limb that was injected for approximately 24-48 hours. Normal day-to-day activities are generally not a problem. POSSIBLE SIDE EFFECTS Individuals with dark complexions may experience some skin discoloration locally at the site of the injection. There is the possibility of an increase in discomfort within 48 hours following the injection. This is called a f lare . To help minimize the chances of this, please see the post-injection instructions above. There is a less than 1% chance of an infection. If you notice any signs of infection (redness, warmth, drainage, fever greater than 100 degrees) please call our office or contact us through the portal [facility]. Not available 06/02/2023 08:09:11 Mild to moderate degenerative changes grade 3 within the right knee osteophyte formation mild subchondral sclerosis without acute bony abnormality Not available 06/02/2023 08:04:17 07/11/2023 [id number] You have been provided with a cortisone injection in order to reduce the pain and inflammation that you are experiencing. The injection consists of two medications. Cortisone (an anti-inflammatory that will take 48-72 hours to take effect) and Lidocaine (a numbing agent that will last 2-3 hours). Please note that not everyone will have a lasting response following the injection. PATIENT INSTRUCTIONS Once the Lidocaine wears off, you may have an increase in your pain. I recommend icing the affected area for 20 minutes 3-4 times per day. It is recommended that you refrain from any high level activities using the joint or limb that was injected for approximately 24-48 hours. Normal day-to-day activities are generally not a problem. POSSIBLE SIDE EFFECTS Individuals with dark complexions may experience some skin discoloration locally at the site of the injection. There is the possibility of an increase in discomfort within 48 hours following the injection. This is called a f lare . To help minimize the chances of this, please see the post-injection instructions above. There is a less than 1% chance of an infection. If you notice any signs of infection (redness, warmth, drainage, fever greater than 100 degrees) please call our office or contact us through the portal [facility]. Not available 07/11/2023 14:11:55 10/11/2023 [id number] You have been provided with a cortisone injection in order to reduce the pain and inflammation that you are experiencing. The injection consists of two medications. Cortisone (an anti-inflammatory that will take 48-72 hours to take effect) and Lidocaine (a numbing agent that will last 2-3 hours). Please note that not everyone will have a lasting response following the injection. PATIENT INSTRUCTIONS Once the Lidocaine wears off, you may have an increase in your pain. I recommend icing the affected area for 20 minutes 3-4 times per day. It is recommended that you refrain from any high level activities using the joint or limb that was injected for approximately 24-48 hours. Normal day-to-day activities are generally not a problem. POSSIBLE SIDE EFFECTS Individuals with dark complexions may experience some skin discoloration locally at the site of the injection. There is the possibility of an increase in discomfort within 48 hours following the injection. This is called monica michele . To help minimize the chances of this, please see the post-injection instructions above. There is a less than 1% chance of an infection. If you notice any signs of infection (redness, warmth, drainage, fever greater than 100 degrees) please call our office or contact us through the portal [facility]. Not available 10/11/2023 07:26:46 Reason for Referral Physical Therapist Referral for Impingement syndrome of left shoulder region Left Adhesive capsulitis, impingement with GH arthritis. Eduardo. Inj 03/14/23 Eval and treat Referring Physician: Edwardo العلي, Orthopedic Surgery, Encounter Date: 03/14/2023 Problems Name Problem SNOMED Code Status Onset Date Resolution Date Notes Provider Name and Address Organization Details Recorded Time Tear of medial meniscus of knee 184841574 Active 2019 Traumatic tear of medial meniscus of knee, right, initial encounter Not Available [facility] 5 00:30:43 Injury of right knee [id number] Active 2019 Injury of right knee Not Available [facility] 5 00:30:43 Patient encounter status [id number] Active 2021 Follow-up exam after treatment Not Available [facility] 5 00:30:42 Effusion of joint of right knee 46606567261 9104 Active 2022 EDWARDO العلي PA-C [address], [place], [address] , [place] [facility] 3 13:02:01 Osteoarth ritis of right knee joint 07904705856 9100 Active 2022 EDWARDO العلي PA-C [address], [place], [address] , [place] [facility], [facility] 3 13:02:08 Adhesive capsuliti s of left shoulder 71990583548 9107 Active 2022 EDWARDO العلي PA-C [address], [place], [address] , [place] [facility], [facility] 3 11:08:15 Impingeme nt syndrome of left shoulder region 04720022991 9104 Active 2022 EDWARDO العلي PA-C [address], [place], [address] , [place] [facility], [facility] 3 11:08:42 Partial thickness rotator cuff tear 556062375 Active 2022 EDWARDO العلي PA-C [address], [place], [address] , [place] [facility] 3 14:08:01 Pain of left shoulder joint 54107579864 943567 Active 2022 EDWARDO العلي PA-C [address], [place], [address] , [place] [facility] 3 14:08:50 Osteoarth ritis of left glenohume ral joint 01714743300 88575 Active 2022 EDWARDO العلي PA-C [address], [place], [address] , [place] [facility], [facility] 3 14:09:00 Problem Notes None recorded. Procedures Surgical History Date Name Laterality Status Provider Name and Address Organization Details Recorded Time 4 Shoulder Joint/Bursa Asp & Inj completed EDWARDO العلي PA-C [address], [place], [address], [place] [facility], P 10/11/2023 07:26:46 3 Shoulder Joint/Bursa Asp & Inj completed EDWARDO العلي PA-C [address], [place], [address], [place] [facility], [facility] 07/11/2023 14:07:41 3 Knee Joint/Bursa Asp & Inj completed EDWARDO العلي PA-C [address], [place], [address], [place] [facility], P 06/02/2023 08:02:09 3 Shoulder Joint/Bursa Asp & Inj completed EDWARDO العلي PA-C [address], [place], [address], [place] [facility], P 03/14/2023 13:00:51 3 Knee Joint/Bursa Asp & Inj completed EDWARDO العلي PA-C [address], [place], [address], [place] - [facility] 03/09/2023 13:00:46 Knee arthroscopy/s urgery completed [facility] [place] - [facility] 03/09/2023 13:41:05 Imaging Results None recorded. Procedure Notes None recorded. Medical Equipment None Reported. Allergies Allergen ID Allergen Name Allergen Category Reaction Reaction Severity Criticality Documentation Date Start Date Code Code System Note Provider Name and Address Organization Details Recorded Time 8421 sulfur dioxide medicatio n Not available Not available Not available 03/09/2023 74255 79 RxNorm [facility], [place] - [facility] 3 13:39:06 Medications Name Sig Start Date Stop Date Status Note LastModified by Organization Details LastModified Time bupivacaine HCl 0.5 % (5 mg/mL) injection solution Take 2 mL by injection route. 2023 active Not Available Not Available Not Avai lable prednisone 20 mg tablet Take 3 tabs for 3 days then take 2 tabs for 3 days then take 1 tab for 3 days 2021 active Not Available Not Available Not Avai lable ketorolac 0.5 % eye drops active Not Available Not Available Not Available Kenalog 40 mg/mL suspension for injection Take 2 mL by injection route. 2023 active Not Available Not Available Not Avai lable methylpredn isolone acetate 40 mg/mL suspension for injection 06/30 completed Not Available Not Available Not Available ibuprofen 200 mg tablet Take 200 mg by mouth every 6 (six) hours as needed for pain. active Not Available Not Available No t Available bupivacaine (PF) 0.5 % (5 mg/mL) injection solution Take 2 mL by injection route. 06/20 completed Not Available Not Available Not Available lidocaine (PF) 10 mg/mL (1 %) injection solution Take 2 mL by injection route. 10/10 completed Not Available Not Available Not Available hylan g-f 20 48 mg/6 mL intra-artic ular syringe 08/25 completed Not Available Not Available Not Available lidocaine (PF) 100 mg/5 mL (2 %) injection syringe Take 2 mL by injection route. 2023 active Not Available Not Available Not Avai lable hyaluronate sodium, stabilized 60 mg/3 mL intra-artic ular syringe 07/28 completed Not Available Not Available Not Available QuickVue At-Home COVID-19 Test kit USE DIRECTED 03/09 completed Not Available Not Available Not Available Vitals Date Recorded Body height Provider Name an d Address Organization Details Last Updated DateTime 10/11/2023 167[address] [place] - [facility] 10/11/2023 09:26:41 Date Recorded Body height Body mass index (BMI) Body weight Provider Name and Address Organization Details Last Updated DateTime 03/14/2023 167.64 cm 32.3 kg/m2 22715.47 g [facility] 03/14/2023 10:40:35 Date Recorded Body height Provider Name an d Address Organization Details Last Updated DateTime 06/01/2023 167.64 cm [facility] 06/01/2023 15:32:13 Date Recorded Body height Provider Name an d Address Organization Details Last Updated DateTime 06/20/2023 167.64 cm [facility] 06/20/2023 11:17:15 Social History None recorded. Functional Status Question Answer Note LastModified by I Just Shared ion Details LastModified Time How many times per week do you consume alcohol? 1-2 times per week Information not available 03/09/2023 Do you use any illicit or recreational drugs? No Information not available 03/09/2023 Do you or have you ever used any other forms of tobacco or nicotine? No Information not available 03/09/2023 What is your level of alcohol consumption? Occasional Information not available 03/09/2023 Mental Status None recorded. Family History Relationship Description Onset Age of this Age Resolved Age Notes LastModified by Organization Details LastModified Time Mother Family history of malignant neoplasm Not available 2022 13:39:47 Sister Family history of malignant neoplasm Not available 2022 13:39:47 Sister Hypercholest erolemia Not available 2022 13:40:12 Sister Hypertensive disorder Not available 2022 13:40:25 Father Heart disease Not available 2022 13:40:00 Father Hypertensive disorder Not available 2022 13:40:25 Medical History Condition Response Coronary Artery Disease N Gout N Hyperthyroidism N MRSA N Blood Transfusion N Emphysema N Depression N COPD N Hypothyroidism N Pacemaker N Vascular Disease N Gastrointestinal Disease N Anxiety Disorder N Autoimmune disease N Arthritis N Cancer N Stroke N High Cholesterol N Neurologic Disorder N Liver Disease N Organ Transplant N Rheumatoid Arthritis N Arrhythmia N Fibromyalgia N Kidney Disease N Allergies/Hayfever N Adverse Reaction to Anesthesia N Thyroid Problems N Anemia N Brain Injury N Heart Attack (CA) N Osteopenia N Diabetes N Bleeding Disorder N Seizures/Epilepsy N AIDS/HIV N Congestive Heart Failure (CHF) N Asthma N Amputation N Reflux/GERD N Sleep Apnea N Hepatitis N Aneurysm N Heart Disease N Pulmonary Embolism N Hypertension N Osteoporosis N Gynecological HistoryNo gynecological history recorded. Obstetrics History GPAL:G 0 P 0 0 0 0 Past Encounters Encounter ID Performer Location Encounter Start Date Encounter Closed Date Diagnosis/Indication Diagnosis SNOMED-CT Code Diagnosis ICD10 Code Diagnosis IMO Codes Diagnosis Note [id number] [facility] [address] [address] 03/09/2023 11:23:05 03/09/2023 12:24:39 Effusion of joint of right knee 3887954260 14966 M25.461 Osteoarthr itis of right knee joint 2682767210 61043 M17.11 [id number] [facility] [address] [address] 03/14/2023 10:28:00 03/14/2023 11:15:28 Pain of left shoulder joint 9335387207 9263997 M25.512 Adhesive c apsulitis of left shoulder 5509496731 96216 M75.02 Impingemen t syndrome of left shoulder region 9590413921 13871 M75.42 [id number] [facility] [address] [address] 06/01/2023 14:48:53 06/01/2023 15:27:50 Pain of right knee joint 9789731850 47942 M25.561 [id number] [facility] [address] [address] 06/20/2023 10:53:07 06/20/2023 11:36:32 Impingement syndrome of left shoulder region 3312129334 68425 M75.42 [id number] [facility] [address] [address] 07/11/2023 13:40:21 07/11/2023 14:19:58 Impingement syndrome of left shoulder region 2449102630 53690 M75.42 Partial th ickness rotator cuff tear 091638718 M75.112 Pain of le ft shoulder joint 2436886755 1846283 M25.512 Osteoarthr itis of left glenohumeral joint 1313871453 547890 M19.012 [id number] [facility] 299 [facility] [address] [place] [address] 10/11/2023 09:15:36 10/11/2023 09:53:02 Impingement syndrome of left shoulder region 2085315602 73256 M75.42 Partial th ickness rotator cuff tear 407240018 M75.112 Pain of le ft shoulder joint 7945954975 6413229 M25.512 Osteoarthr itis of left glenohumeral joint 1655398932 711465 M19.012 Adhesive c apsulitis of left shoulder 2501011372 00557 M75.02 Health Concerns Section Related Observation LastModified by Organization Detai ls LastModified Time None Recorded Concern Status LastModified by Organization Details LastModified Time None Recorded Advance Directives Directive None Recorded Payers Insurance Date Sequence Insurance Name Policy Number Policy Weinstein Covered Member ID Weinstein Member ID Guarantor Name 10/08/2023 2 [facility] (PPO) [id number] Armando Stone [id number] Armando Stone 10/08/2023 1 MEDICARE [place]: [facility] Armando Stone [id number] Armando Stone Notes Date Note Type Note Provider Name and Address Organization Details Recorded Time 3 text/html Pleasant 72-year-old female here for evaluation of ongoing anterior left shoulder pain since October. She states she was working out the gym on a regular basis in which she had notable pain and discomfort. She does admit she had been babying her left shoulder which made her symptoms worse . She has decreased range of motion with discomfort and pain that wakes her up at night. She denies neck symptoms or paresthesias. She has ifhdt-ylyr-rratldgg. EDWARDO العلي PA-C 299 [facility] [address], [place], [address], [place] - [facility] 03/14/2023 13:04:33 3 text/html This is a pleasant 73-year-old female last seen on 03/09/2023 for which she had cortisone injection. This is since worn off. She also feels that she has fluid on the right knee . Patient is requesting for aspiration followed by cortisone injection. She denies any trauma denies any fevers or chills denies any warmth overlying the knee joint. She states stiff. EDWARDO العلي PA-C [address] [address], [place], [address], [place] - [facility] 06/02/2023 08:13:00 3 text/html 73-year-old female following up ongoing left shoulder pain despite cortisone injection and formal physical therapy. She denies neck symptoms or paresthesias here for follow-up evaluation and further work-up. Her x-rays that were reviewed 03/14/2023 reveal mild glenohumeral joint space narrowing, type III acromion, AC joint space narrowing EDWARDO العلي PA-C 299 [facility],[address], [place], [address], [place] - [facility] 06/20/2023 12:59:43 3 text/html L shoulder. MRI results. cortisone 03/14/23 Patient is here for follow-up on her MRI results left shoulder with no new changes. States cortisone gave her relief however this is since worn off. Pain still wakes her up at night has some limitations although she had better range of motion she went to physical therapy for which she has a home exercise program. She states that she is only interested in conservative management cannot have surgery since she is taking care of her who recently had surgery. [facility] [id number] [place] [address] ___Patient: ARMANDO STONE/Age/Sex: 1950 - 73 - FUnit#: [id number] Location/Status: SPDIMRI/REG CLIAccount#: [id number] Mnemonic/[facility]ing [facility] EDWARDO العلي MR Shoulder LT WO - 07/03/23 -Report Status:SignedINDICATION: LT SHOULDER PAINCOMPARISON: NoneTECHNIQUE: Multiplanar, multisequence MRI examination was performed of theleft shoulder without intravenous contrast.FINDINGS: Scan sensitivity is degraded due to patient motion.Rotator Cuff: Signal heterogeneity with focal fluid signal involving the distal, anterior fibers of the supraspinatus tendon in keeping with partialthickness tearing with underlying tendinosis. Heterogeneity is also seeninvolving the infraspinatus tendon in an subscapularis tendon in keepingwith mild tendinosis. Narrowing of the acromiohumeral interval. Nosignificant muscle volume loss or fatty infiltration.Biceps Tendon: Intra-articular biceps tendinosis. The biceps tendon ismedially perched at the level of the bicipital groove.Labrum: Degenerative appearanceBone/Cartilage: Moderate cartilage thinning of the humeral head andglenoid cartilage. Cystic change of the glenoid. Superior and inferiorhumeral head osteophytes as well as osteophytes of the glenoid.AC Joint: Moderate left AC joint arthropathy.Miscellaneous :Trace subacromial/subdeltoid bursal fluid. Left shoulderjoint effusion with fluid signal extending into the proximal biceps tendonsheath. 2 mm intra-articular body within the extra-articular biceps tendonsheath.IMPRESSION:1 . Moderate left glenohumeral osteoarthritis with left shoulder jointeffusion extending into the proximal biceps tendon sheath2. Partial thickness tearing of the anterior fibers of the distalsupraspinatus tendon with underlying tendinosis3. Moderate left AC joint arthropathyDictating Physician: BING YANG MDElectronically Signed by: BING YANGic Date/Time: 07/04/23 0637Sign date/Time: 07/04/23 0641 EDWARDO العلي PA-C [address] [address], [place], [address], [place] - [facility] 07/11/2023 14:19:35 4 text/html Patient with left shoulder impingement syndrome, glenohumeral arthritis and partial rotator cuff tearing for which she opted for nonoperative management at her last visit on 07/11/2023 she opted for a cortisone injection which gave her good relief. She is here for follow-up and possible reinjection. She denies any interval change in history EDWARDO العلي PA-C 299 [facility],[address] [address], [place], [address], [place] - [facility] 10/11/2023 09:53:16 OBGyn Episode No OBEpisode recorded.
--- OUTSIDE RECORDS SUMMARY | 2025-07-16 08:43 | XMS_ITS ---
Author Name [facility] Organization Unknown History of Medication Use Medication Directions Dispensed Refills Start Date End Date Stat us lidocaine (PF) 100 mg/5 mL (2 %) injection syringe Take 2 mL by injection route. 10/11/2023 active bupivacaine HCl 0.5 % (5 mg/mL) injection solution Take 2 mL by injection route. 07/11/2023 active bupivacaine (PF) 0.5 % (5 mg/mL) injection solution Take 2 mL by injection route. 03/14/2023 06/20/2023 completed lidocaine (PF) 10 mg/mL (1 %) injection solution Take 2 mL by injection route. 03/09/2023 10/11/2023 active Kenalog 40 mg/mL suspension for injection Take 2 mL by injection route. 03/09/2023 06/20/2023 active QuickVue At-Home COVID-19 Test kit USE DIRECTED 03/09/2023 co mpleted lidocaine (PF) 10 mg/mL (1 %) injection solution active Kenalog 40 mg/mL suspension for injection active bupivacaine HCl 0.5 % (5 mg/mL) injection solution active ketorolac 0.5 % eye drops active Allergies Allergen Reaction Severity Comment Documented Date Source Statu s SULFUR DIOXIDE ENS_[facility]ECT Problems Problem Status Onset Date Problem Type Date of Resoluti on Source Adhesive capsulitis of left shoulder active 2023-03-14 ProblemAct [facility] Pain of left shoulder joint active 2023-07-11 ProblemAct [facility] Partial thickness rotator cuff tear active 2023-07-11 ProblemAct [facility] Impingement syndrome of left shoulder region active 2023-03-14 ProblemAct E[facility] ECT Osteoarthritis of left glenohumeral joint active 2023-07-11 ProblemAct ENS_[facility]ONEC T Osteoarthritis of right knee joint active 2023-03-09 ProblemAct [facility] Effusion of joint of right knee active 2023-03-09 ProblemAct E[facility] Encounters Encounter Type Encounter Reason Primary Diagnosis Location Date Ambulatory [facility] 02/04/2024 Ambulatory [facility] 10[facility]11/2023 Ambulatory [facility] 10/10/2023 Ambulatory [facility] 09/21/2023 Ambulatory [facility] 09/17/2023 Ambulatory [facility] 08/13/2023 Ambulatory [facility] 07[facility]11/2023 Ambulatory [facility] 07/09/2023 Ambulatory [facility] 06/01/2023 Ambulatory [facility] 05/21/2023 Ambulatory [facility] 04/16/2023 Ambulatory [facility] 03/14/2023 Ambulatory [facility] 03/13/2023 Ambulatory [facility] 03/13/2023 Ambulatory [facility] 03/09/2023 Ambulatory [facility] 03/08/2023 Ambulatory [facility] 03/08/2023 Ambulatory [facility] 03/06/2023 Ambulatory [facility] 03/06/2023 Ambulatory [facility] 03/06/2023 Ambulatory [facility] 03/06/2023 Ambulatory [facility] 03/03/2023 Ambulatory [facility] 03/03/2023
--- OUTSIDE RECORDS SUMMARY | 2025-07-16 08:44 | XMS_ITS | Patient Health Record ---
Author Organization [facility] Address [address] [place] [address] Care Team Providers Care Sales Representative Jewelry Name Role Phone PCP, Not Found in eCW Primary Care Provider Unav James Deng Unavailable [phone] Sherrill Machado Unavailable [phone] Pepe Gilman Unavailable [phone] ALLERGIES Allergen (clinical drug ingredient) Drug/Non Drug Allergy documented on EMR Reaction Allergy Type Onset Date Status Substance with sulfonamide structure and antibacterial mechanism of action (substance) Sulfa Antibiotics Unknown Drug Allergy Active RESULTS Component Value Reference Range Notes Rapid Strep Reviewed date:10/12/2024 07:04:50 PM Interpretation:Negative Performing Lab: Notes/Report: Negative STREP negative NEG - POS Throat Culture - NSLIJ Reviewed date:10/14/2024 10:37:36 AM Interpretation:Negative Performing Lab:[facility], [address] [place] [address], Director - [facility] Snailer: Saeed Kim MD Notes/Report: Throat Strep A [...] Locations P1: This test was performed at: [facility], [address], [address], [facility] A = Abnormal, H = High, HH = Critical High, L = Low, LL = Critical Low Covid-19 PCR - NSLIJ (Not ye t reviewed by provider) Interpretation: Performing Lab:[facility], [address] [place] [address], Director - [facility] Snailer: Saeed Kim MD Notes/Report: Test not performed COVID-19 RT-PCR CANCEL Cancellation Reason: Lab Operations Cancel A = Abnormal, H = High, HH = Critical High, L = Low, LL = Critical Low COVID-19 Rapid Antigen Reviewed date:10/12/2024 06:38:41 PM Interpretation:negative Performing Lab: Notes/Report: negative COVID19 negative REASON FOR REFERRAL No Information SOCIAL HISTORY Tobacco Use: Social History Observation Description Date Details (start date - stop date) Former Smoker NA - NA Sex Assigned At : Social History Observation Description Sex Assigned At Unknown Tobacco Use/Smoking Question Answer Notes You are a former smoker PROBLEMS Problem Type ICD Code Onset Dates Problem Status W/U Status Risk SNOMED Code Notes Problem Upper respiratory tract infection, unspecified type (J06.9) Active confirmed [id number] VITAL SIGNS Heart Rate 89 /min 10/15/2024 Temperature 98.4 degrees Fahrenheit 10/15/2024 Respiratory Rate 16 /min 10/15/2024 Oximetry 96 % 10/15/2024 Blood pressure diastolic 84 mm Hg 10/15/2024 Height 5ft 6in in 10/15/2024 Blood pressure systolic 132 mm Hg 10/15/2024 Weight 190 lbs 10/15/2024 BMI 30.66 kg/m2 10/15/2024 Encounters Encounter Location Date Provider Diagnosis [place] [address] [place] [address] 10/12/2024 Sherrill Machado Encounter for laboratory testing for COVID-19 virus Z20.822 ; Strep pharyngitis J02.0 and Sore throat J02.9 [facility] [address] [place] [address] [facility] [address] [place] [address] 10/15/2024 James Avila Acute bacterial conjunctivitis of both eyes H10.33 and Upper respiratory tract infection, unspecified type J06.9 ASSESSMENTS Encounter Date Diagnosis Assessment Notes Treatment Notes Treatment Clinical Notes Section Notes 10/12/2024 Strep pharyngitis (ICD-10 - J02.0) Add U07.1 and remove Z20.822 if Covid Positive 10/12/2024 Encounter for laboratory testing for COVID-19 [...] access your patient portal, you may visit [email or web address] If a COVID PCR test was [...] U07.1 and remove Z20.822 if Covid Positive 10/15/2024 Upper respiratory tract infection, unspecified type (ICD-10 - J06.9) 10/15/2024 Acute bacterial conjunctivitis of both eyes (ICD-10 - H10.33) 10/12/2024 Sore throat (ICD-10 - J02.9) Add U07.1 and remove Z20.822 if Covid Positive 10/12/2024 Other You may take an moub-huc-mmqzfv r pain reliever/fever loom mechanic for any fever/pain. You can also take an xsnv-gpi-vmfokc r cough suppressant as needed for cough if one has not been prescribed. Your provider can recommend specific medications based on your medical history if needed. Return to the clinic or schedule a virtual visit if you require additional medical attention. Add U07.1 and remove Z20.822 if Covid Positive PLAN OF TREATMENT No Information Insurance Providers Payer Name Payer Address Payer Phone Subscriber Number Group Number Insured Name Patient Relationship to Insured Coverage Start Date Coverage End Date MEDICARE [place] [address] [place] [phone] [id number] ILDEFONSO STONE Self - patient is the insured [facility] [address] [place] [address] [phone] [id number] ILDEFONSO STONE Self - patient is the insured
== END 2025-07-16 08:48 | disposition home or self-care (01) ==
PROVIDERS: PCP Physician Assistant; Visit Provider Orthopaedic Surgery
DX: M17.11 Unilateral primary osteoarthritis, right knee (principal)
CPT/HCPCS: 20610

== ENCOUNTER → 2025-07-16 08:30 | Outpatient (BNVA) | payer MEDICARE, OTHER, SELFPAY | PROVIDERS: PCP Physician Assistant; Visit Provider Orthopaedic Surgery | DX: M17.11 Unilateral primary osteoarthritis, right knee (principal) | CPT/HCPCS: 20610; J2003; J7318 ==